=== PATIENT | female | born 1950 | race Caucasian/White ===

== ENCOUNTER 2021-07-21 08:28 | Outpatient (CLI) | payer MEDICARE ==
[2021-07-21 23:00] LABS: SARS-CoV-2 PCR by NAA Not Detected (NotDetected)
== END 2021-07-21 08:29 | disposition home or self-care (01) ==
LOC: CSHLAB 08:28
PROVIDERS: ATTEND Internal Medicine Gastroenterology
DX: Z20.822 Contact with and (suspected) exposure to COVID-19 (principal); K52.9 Noninfective gastroenteritis and colitis, unspecified
CPT/HCPCS: U0003; U0005

== ENCOUNTER 2022-07-18 09:10 | Outpatient (CLI) | payer MEDICARE | END 2022-07-18 09:11 | disposition home or self-care (01) | LOC: CSHMAMMO 09:10 | PROVIDERS: ATTEND Family Medicine | DX: Z12.31 Encounter for screening mammogram for malignant neoplasm of breast (principal); M81.0 Age-related osteoporosis without current pathological fracture; M85.89 Other specified disorders of bone density and structure, multiple sites | CPT/HCPCS: 77063; 77067; 77080 ==

== ENCOUNTER 2023-08-14 09:42 | Outpatient (CLI) | payer MEDICARE | END 2023-08-14 09:43 | disposition home or self-care (01) | LOC: CSHMAMMO 09:42 | PROVIDERS: ATTEND Family Medicine | DX: Z12.31 Encounter for screening mammogram for malignant neoplasm of breast (principal) | CPT/HCPCS: 77063; 77067 ==